=== PATIENT | female | born 1990 | race Two or more races ===

== ENCOUNTER 2020-06-20 18:54 | Emergency (ER) | payer MEDICAID ==
[~2020-06-20] VITALS: Ht 162.6 cm; Wt 94.1 kg
--- NOTE | 2020-06-20 19:34 | NUR ---
PT CAME INTO ED TODAY DUE TO DENTAL PAIN ON RIGHT UPPER SIDE. PT NAD, VSS. SIGNIFICANT OTHER AT BS. STATES HER PAIN IS "REALLY REALLY BAD" AND "I THINK I HAVE AN INFECTION." PT DENIES HAVING DENTAL PROVIDER IN THE AREA STATES SHE HAS PNE BACK HOME THOUGH. PT RESTING ON GURNEY. GROSS NEURO INTACT, DENIES VISION CHANGES TO THIS RN. ANAHI. VINCE TORRES AT BS FOR EVAL AND POC. PT PALCED ON SPO2/BP MONITORING.
[2020-06-20] MEDS ORDERED: HYDROcodone/APAP 5/325 TABLET ONE (19:39)
--- NOTE | 2020-06-20 19:47 | NUR ---
ICE APPLIED TO SIDE OF MOUTH, PT GIVEN WARM BLANKET FOR COMFORT, MEDICATED PER DEC, CONDITION UNCHANGED, WCTM.
[2020-06-20] MEDS ORDERED: HYDROcodone/APAP 5/325 TABLET PO ONE (20:00)
[2020-06-20 20:04] VITALS: BP 128/77
--- NOTE | 2020-06-20 20:05 | NUR ---
Patient given discharge instructions and they have confirmed that they understand the instructions. Patient ambulatory with steady gait. nad, VSS. ALL QUESTIONS ANSWERED APPROPRIATELY, DENIES ADDITIONAL NEEDS AT THIS TIME. NO PERSONAL BELONGINGS LEFT IN ROOM AFTER DC. STATES SHE WILL GO GET ABX IMMEDIATELY.
== END 2020-06-20 20:07 | disposition home or self-care (01) ==
LOC: ED 19:00
DX: K02.9 Dental caries, unspecified (principal); K08.89 Other specified disorders of teeth and supporting structures; R51 Headache; R00.0 Tachycardia, unspecified
CPT/HCPCS: 93005; 99283